=== PATIENT | female | born 1990 | race Caucasian/White ===

== ENCOUNTER 2017-01-10 17:45 | Emergency (ER) | payer SELFPAY ==
[~2017-01-10] VITALS: Ht 165.1 cm; Wt 77.0 kg
[~2017-01-10 17:45] MED LIST: SULF-154 PO; TYLE3 PO; Z.0.BCPILL PO
[2017-01-10 17:47] VITALS: BP 141/90; PULSE 105; RESP 15; TEMP 98.3; O2SAT 99
--- NOTE | 2017-01-10 17:53 | PD ---
HPI . Right elbow pain since last night after falling off a skateboard Chief Complaint: Injury Time Seen by Provider: 17:53 Travel History International Travel<30 days: No Contact w/Intl Traveler<30days: No Traveled to known affect area: No History of Present Illness HPI 26-year-old female with no past medical history here with complaints of right elbow pain status post fall from a skateboard last night. Patient tells me she has very difficult time flexing and extending her right elbow. It is swollen and very tender to touch. She tells me at rest the pain is tolerable, with movement it is significant. She denies any head injury. She took advil about 3 hours ago. She is accompanied by a friend, who she says can stay in room during exam. PFSH Past Medical History Diminished Hearing: No Immunizations Current: No ?: Not LMP: 01/10/17 Past Surgical History Tonsillectomy: Yes Social History Alcohol Use: No Tobacco Use: No Substance Use: No Allergies-Medications (Allergen,Severity, Reaction): Coded Allergies: No Known Allergies (Verified , 01/10/17) Reported Meds & Prescriptions Reported Meds & Active Scripts Active Tramadol (Tramadol HCl) 50 Mg Tab 50 Mg PO Q8H PRN Review of Systems General / Constitutional: No: Fever Eyes: No: Visual changes HENT: No: Headaches Cardiovascular: No: Chest Pain or Discomfort Respiratory: No: Shortness of Breath Gastrointestinal: No: Abdominal Pain Genitourinary: No: Dysuria Musculoskeletal: Positive: Pain (right elbow ) Skin: No Rash Neurologic: No: Weakness Psychiatric: No: Depression Endocrine: No: Polydipsia Hematologic/Lymphatic: No: Easy Bruising Physical Exam Narrative GENERAL: AAO x 3, no acute distress, Well-nourished, well-developed patient. SKIN: Warm and dry. No visible rashes or bruising. + edema to right elbow HEAD: Normocephalic and atraumatic. EYES: No scleral icterus. No injection or drainage. EOM intact, PERRLA ENT: No nasal drainage noted. Mucous membranes pink. Airway patent. NECK: Supple, trachea midline. No JVD. CARDIOVASCULAR: Regular rate and rhythm without murmurs, gallops, or rubs. RESPIRATORY: Breath sounds equal bilaterally. No accessory muscle use. No rhonchi or rales. GASTROINTESTINAL: Abdomen soft, non-tender, nondistended. EXTREMITIES: No cyanosis. + edema to right elbow, decreased ability to flex and extend secondary pain to right elbow. tender to touch. 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 No CVA tenderness. PSYCH: AAO x 3, normal affect. Data Data Last Documented VS Vital Signs Date Time Temp Pulse Resp B/P Pulse Ox O2 Delivery O2 Flow Rate FiO2 01/10/17 17:57 Room Air 01/10/17 17:47 98.3 105 15 141/90 99 Orders Elbow, Complete (4 Vws) (01/10/17 17:55) Splinting (01/10/17 ) Splint Or Brace Apply/Monitor (01/10/17 18:35) [facility] Medical Decision Making Medical Screen Exam Complete: Yes Emergency Medical Condition: Yes Medical Record Reviewed: Yes Differential Diagnosis right elbow contusion, fracture, dislocation, Narrative Course 26-year-old female with no past medical history here with complaints of right elbow pain status post fall from a skateboard last night. Patient tells me she has very difficult time flexing and extending her right elbow. It is swollen and very tender to touch. She tells me at rest the pain is tolerable, with movement it is significant. She denies any head injury. She took advil about 3 hours ago. She is accompanied by a friend, who she says can stay in room during exam. Patient seen and examined. She does have some significant pain with extension and flexion of the right elbow, as well as point tenderness. There is also some significant edema. I'll go head and check an x-ray to rule out any acute bony abnormality. He pain level is tolerable at the moment, therefore we will hold off on any administration of pain medications. Xray: possible fracture at radial epiphysis: splint and sling advised f/u with ortho this week. She will contact her insurance to see who she is allowed to see. Tramadol Rx for pain. Discussed RICE Patient verbalized understanding of instructions, questions were answered, and thanked me for their care. I advised them if their condition worsens, please return to the nearest emergency room for further care. Diagnosis Primary Impression: Elbow fracture, right Qualified Code: S42.401A - Elbow fracture, right, closed, initial encounter Referrals: Orthopedist Patient Instructions: General Instructions Additional Instructions: Rest the affected area as much as possible. Ice this area for 15-20 minutes at a time. You can do this every hour or as much as tolerated. Keep this area compressed (leticia bandage) as tolerated. Elevate this area. Use ibuprofen as needed for pain and inflammation. Please return to emergency department if your symptoms return or worsen. Follow up with your primary care provider. Take medications as prescribed. SEE ORTHOPEDIC THIS WEEK. Med/Other Pt SpecificInfo: Prescription(s) given Scripts Tramadol 50 Mg Tab50 Mg PO Q8H PRN (PAIN) #10 TAB Ref 0 Prov:Destiny Hawley 01/10/17 Disposition: 01 DISCHARGE HOME Condition: Stable Neisha Good January 10, 2017 17:53
--- NOTE | 2017-01-10 18:21 | RADRPT ---
EXAM DATE/TIME: 01/10/2017 18:00 [place] COMPARISON: No previous studies available for comparison. INDICATIONS : Right elbow pain after fall from skateboard. MEDICAL HISTORY : None. SURGICAL HISTORY : None. ENCOUNTER: Initial ACUITY: 1 day PAIN SCORE: 10/10 LOCATION: Right [place]. FINDINGS: There is a moderate joint effusion present. As a tiny cortical step-off involving the lateral aspect of the radial epiphysis which may be a nondisplaced fracture site. The mineralization and alignment a re otherwise normal. CONCLUSION: Probable nondisplaced fracture of the radial epiphysis. Bo Felix MD on January 10, 2017 at 18:16 Board Certified Radiologist. This report was verified electronically.
[2017-01-10] MEDS ORDERED: TRAM50TA PO (18:29)
== END 2017-01-10 19:00 | disposition home or self-care (01) ==
LOC: NEPK 17:45
DX: S52.181A Other fracture of upper end of right radius, initial encounter for closed fracture (principal); V00.131A Fall from skateboard, initial encounter
CPT/HCPCS: 29105; 73080